=== PATIENT | female | born 1980 | race Caucasian/White ===

== ENCOUNTER 2016-12-24 17:45 | Emergency (ER) | payer OTHER ==
[~2016-12-24] VITALS: Ht 162.6 cm; Wt 81.5 kg
[2016-12-24 17:55] VITALS: TEMP 37.1; Ht 162.6 cm; Wt 81.5 kg
--- NOTE | 2016-12-24 18:56 | DIAGNOSTIC IMAGING REPORT ---
CHEST ONE VIEW PORTABLE CLINICAL HISTORY: Evaluate Fever/Sepsis dyspnea COMPARISON STUDY: No previous studies for comparison. FINDINGS: The bones soft tissues and hemidiaphragms are normal. The cardiomediastinal silhouette is normal. The lungs are clear. The pulmonary vasculature is normal. IMPRESSION: Negative chest. Electronically signed by: Bon St M.D. 12/24/2016 6:55 PM Dictated Date/Time: 12/24/2016 6:54 PM
[2016-12-24 18:58] LABS: URINE APPEARANCE CLEAR (CLEAR); URINE BILIRUBIN NEG (NEG); URINE COLOR YELLOW; URINE EPITHELIAL CELL AUTO >30 /lpf (0-5); URINE NITRITE NEG (NEG); URINE PH 6.5 (4.5-7.5); URINE SPECIFIC GRAVITY 1.025 (1.000-1.030); UROBILINOGEN NEG (NEG)
[2016-12-24 18:59] LABS: MANUAL MICROSCOPIC REQUIRED? NO; REVIEW REQ? NO
[2016-12-24 19:16] LABS: BASO % 0.8 %; BASO ABS # 0.09 K/uL (0-0.2); COMPLETE YES; EOS % 0.4 %; HEMATOCRIT 38.2 % (37-47); IG% 0.2 %; LYMPH % 25.5 %; LYMPH ABS # 2.95 K/uL (1.2-3.4); MEAN CELL VOLUME 83.2 fL (80-100); MEAN CORPUSCULAR HEMOGLOBIN 27.9 pg (25-34); MEAN CORPUSCULAR HGB CONC 33.5 g/dl (32-36); MONO % 5.5 %; NEUT % 67.6 %; PLATELET COUNT 385 K/uL (130-400); RED BLOOD COUNT 4.59 M/uL (4.2-5.4); WHITE BLOOD COUNT 11.57 K/uL (4.8-10.8)
[2016-12-24] MEDS ORDERED: BCPILLS PO (19:28)
[2016-12-24] MEDS ORDERED: ZNTT/150 PO (19:28)
[2016-12-24 19:31] LABS: INR 1.1 (0.9-1.1); PROTHROMBIN TIME (PATIENT) 11.4 SECONDS (9.0-12.0)
[2016-12-24 19:40] LABS: ALT/SGPT 31 U/L (12-78); AST/SGOT 19 U/L (15-37); BLOOD UREA NITROGEN 12 mg/dl (7-18); BUN/CREATININE RATIO 14.9 (10-20); CALCIUM 8.8 mg/dl (8.5-10.1); CARBON DIOXIDE 28 mmol/L (21-32); CHLORIDE 106 mmol/L (98-107); CREATININE 0.81 mg/dl (0.60-1.20); GLUCOSE 97 mg/dl (70-99); SODIUM 140 mmol/L (136-145)
[2016-12-24 19:49] LABS: ALKALINE PHOSPHATASE 72 U/L (45-117); CKMB/CK RATIO 1.1 (0-3.0)
--- NOTE | 2016-12-24 20:17 | EMERGENCY ROOM VISIT NOTE ---
History Report prepared by Shakira: Jameson Duque Under the Supervision of: Dr. Eric Espinoza D.O. First contact with patient: 18:23 Chief Complaint: CHEST PAIN Stated Complaint: IRREGULAR HEARTBEAT,CHEST PAIN,LIGHT HEADED Nursing Triage Summary: Chest pain with strenous activity. History of Present Illness The patient is a 36 year old female who presents to the Emergency Room with complaints of intermittent chest pain beginning four days prior to arrival. She states she was shoveling know on Monday, four days ago, and she went inside and ate a pasta meal. The patient notes she developed chest pain three hours following shoveling the snow and felt lightheaded. She states the following day that she ate a meal and shoveled snow two hours after eating. The patient notes the chest pain returned a few hours following the exertion. She states today she ran 6 miles, and began to feel the chest discomfort an hour following the run. The patient notes she showered and felt more fatigued than usual, so she lied down. She states the chest discomfort was still there following her nap. The patient notes her chest discomfort happens multiple times a day but seems to be onset by exertion. She states she is training for a half marathon so running long distances is not unusual for her. The patient notes she ran 5 miles last week and did not have any issues. She states she has a history of an enlarged heart and a heart murmur. The patient notes she has a family history of heart disease and thyroid issues. She states her father had a heart attack at the age of 42. Source of History: patient Onset: 4 days [employer] Position: chest Timing: intermittent Modifying Factors (Worsening): exertion Associated Symptoms: + chest pain Review of Systems See HPI for pertinent positives & negatives. A total of 10 systems reviewed and were otherwise negative. Past Medical & Surgical Medical Problems: (1) Enlarged heart (2) Heart murmur Family History Heart disease Social History Smoking Status: Never Smoker Marital Status: Occupation Status: unemployed Current/Historical Medications Scheduled Control Pills ( Control Pills), 1 TAB PO DAILY Scheduled PRN Ranitidine (Zantac), 150 MG PO DAILY PRN for PRN Allergies Coded Allergies: Penicillins (Unverified Allergy, Unknown, HIVES, 12/24/16) Physical Exam Vital Signs Date Time Temp Pulse Resp B/P Pulse Ox O2 Delivery O2 Flow Rate FiO2 3/18/17 19:31 85 12/24/16 19:25 84 18 126/81 100 Room Air 12/24/16 17:55 37.1 104 20 128/84 99 Room Air Physical Exam CONSTITUTIONAL/VITAL SIGNS: Reviewed / noted above. GENERAL: Non-toxic in appearance. INTEGUMENTARY: Warm, dry, and [place]. HEAD: Normocephalic. EYES: without scleral icterus or trauma. ENT/OROPHARYNX: clear and moist. LYMPHADENOPATHY/NECK: Is supple without lymphadenopathy or meningismus. RESPIRATORY: Lungs clear and equal. CARDIOVASCULAR: Regular rate and rhythm. GI/ABDOMEN: Soft and nontender. No organomegaly or pulsatile mass. No rebound or guarding. Normal bowel sounds. EXTREMITIES: Warm and well perfused. BACK: No CVA tenderness. NEUROLOGICAL: Intact without focal deficits. PSYCHIATRIC: normal affect. MUSCULOSKELETAL: Normally developed with good muscle tone. Medical Decision & Procedures ER Provider Diagnostic Interpretation: X ray results and stated below per my interpretation and radiology interpretation. CHEST ONE VIEW PORTABLE CLINICAL HISTORY: Evaluate Fever/Sepsis dyspnea COMPARISON STUDY: No previous studies for comparison. FINDINGS: The bones soft tissues and hemidiaphragms are normal. The cardiomediastinal silhouette is normal. The lungs are clear. The pulmonary vasculature is normal. IMPRESSION: Negative chest. Electronically signed by: Bon St M.D. 12/24/2016 6:55 PM Laboratory Results 12/24/16 19:05 Red Blood Count 4.59, Mean Corpuscular Volume 83.2, Mean Corpuscular Hemoglobin 27.9, Mean Corpuscular Hemoglobin Concent 33.5, Mean Platelet Volume 10.0, Neutrophils (%) (Auto) 67.6, Lymphocytes (%) (Auto) 25.5, Monocytes (%) (Auto) 5.5, Eosinophils (%) (Auto) 0.4, Basophils (%) (Auto) 0.8, Neutrophils # (Auto) 7.82, Lymphocytes # (Auto) 2.95, Monocytes # (Auto) 0.64, Eosinophils # (Auto) 0.05, Basophils # (Auto) 0.09 12/24/16 19:05 Test 12/24/16 18:20 12/24/16 19:05 Urine Color YELLOW Urine Appearance CLEAR (CLEAR) Urine pH 6.5 (4.5-7.5) Urine Specific [place] 1.025 (1.000-1.030) Urine Protein NEG (NEG) Urine Glucose (UA) NEG (NEG) Urine Ketones NEG (NEG) Urine Occult Blood TRACE (NEG) Urine Nitrite NEG (NEG) Urine Bilirubin NEG (NEG) Urine Urobilinogen NEG (NEG) Urine Leukocyte Esterase SMALL (NEG) Urine WBC (Auto) 5-10 /hpf (0-5) Urine RBC (Auto) 0-4 /hpf (0-4) Urine Hyaline Casts (Auto) 0 /lpf (0-5) Urine Epithelial Cells (Auto) >30 /lpf (0-5) Urine Bacteria (Auto) NEG (NEG) White Blood Count 11.57 K/uL (4.8-10.8) Red Blood Count 4.59 M/uL (4.2-5.4) Hemoglobin 12.8 g/dL (12.0-16.0) Hematocrit 38.2 % (37-47) Mean Corpuscular Volume 83.2 fL (80-100) Mean Corpuscular Hemoglobin 27.9 pg (25-34) Mean Corpuscular Hemoglobin Concent 33.5 g/dl (32-36) Platelet Count 385 K/uL (130-400) Mean Platelet Volume 10.0 fL (7.4-10.4) Neutrophils (%) (Auto) 67.6 % Lymphocytes (%) (Auto) 25.5 % Monocytes (%) (Auto) 5.5 % Eosinophils (%) (Auto) 0.4 % Basophils (%) (Auto) 0.8 % Neutrophils # (Auto) 7.82 K/uL (1.4-6.5) Lymphocytes # (Auto) 2.95 K/uL (1.2-3.4) Monocytes # (Auto) 0.64 K/uL (0.11-0.59) Eosinophils # (Auto) 0.05 K/uL (0-0.5) Basophils # (Auto) 0.09 K/uL (0-0.2) RDW Standard Deviation 40.2 fL (36.4-46.3) RDW Coefficient of Variation 13.3 % (11.5-14.5) Immature Granulocyte % (Auto) 0.2 % Immature Granulocyte # (Auto) 0.02 K/uL (0.00-0.02) Prothrombin Time 11.4 SECONDS (9.0-12.0) Prothromb Time International Ratio 1.1 (0.9-1.1) Activated Partial Thromboplast Time 25.6 SECONDS (21.0-31.0) Partial Thromboplastin Ratio 1.0 Anion Gap 6.0 mmol/L (3-11) Est Creatinine Clear Calc Drug Dose 99.2 ml/min Estimated GFR () 108.3 Estimated GFR (Non- 93.4 BUN/Creatinine Ratio 14.9 (10-20) Calcium Level 8.8 mg/dl (8.5-10.1) Total Bilirubin 0.2 mg/dl (0.2-1) Direct Bilirubin < 0.1 mg/dl (0-0.2) Aspartate Amino Transf (AST/SGOT) 19 U/L (15-37) Alanine Aminotransferase (ALT/SGPT) 31 U/L (12-78) Alkaline Phosphatase 72 U/L (45-117) Total Creatine Kinase 259 U/L (26-192) Creatine Kinase MB 2.8 ng/ml (0.5-3.6) Creatine Kinase MB Ratio 1.1 (0-3.0) Troponin I < 0.015 ng/ml (0-0.045) Total Protein 7.8 gm/dl (6.4-8.2) Albumin 3.7 gm/dl (3.4-5.0) Lipase 145 U/L (73-393) Thyroid Stimulating Hormone (TSH) 3.240 uIu/ml (0.300-4.500) Free Thyroxine 1.02 ng/dl (0.80-1.60) Free Triiodothyronine 2.55 pg/ml (2.30-4.20) Laboratory results as stated above per my review. ECG Indication: chest pain Rate (beats per minute): 90 Rhythm: normal sinus Findings: no ectopy, other (no acute injury) ED Course 182: Previous medical records were reviewed. The patient was evaluated in room A11B. A complete history and physical examination was performed. 2017: On reevaluation, the patient is doing well. I discussed the results and findings with the patient. She verbalized agreement of the treatment plan. The patient was discharged home. Medical Decision the differential was considered includes acute myocardial infarction, acute coronary syndrome, myocarditis, pericarditis, pericardial effusions /tamponade, esophageal perforation, thoracic aortic dissection, pulmonary embolism, pneumonia, pneumothorax, pancreatitis, shingles, acute cholecystitis, perforated abdominal viscus. This is a 36-year-old female who presents to the ED with a chief complaint of chest palpitations. The patient states that her symptoms occur 1-2 hours after activity. It does not occur during activity. It occurred several times in the past week. She states that it occurred twice an hour or 2 after shoveling snow and then once after jogging. She states that she was running today about 6 miles an about an hour later she developed heavy heart pounding. She states that the symptoms would come and go. Vital signs are stable. Her physical exam is currently normal. EKG shows a normal sinus rhythm. CBC and complete metabolic panel was unremarkable. TSH is normal as is the free T3 and free T4. Troponin was negative. Urine did not show infection chest x-ray is negative for acute disease. The patient was told the results. She is felt to be stable for discharge. A Holter monitor might be beneficial in the future. Impression Primary Impression: Palpitations Scribe Attestation The scribe's documentation has been prepared under my direction and personally reviewed by me in its entirety. I confirm that the note above accurately reflects all work, treatment, procedures, and medical decision making performed by me. Departure Information Dispostion Home / Self-Care Referrals Darryn Alonzo M.D. (PCP) Forms HOME CARE DOCUMENTATION FORM, IMPORTANT VISIT INFORMATION Patient Instructions My [facility] Additional Instructions Your test results today were normal. Thyroid function is normal. EKG was normal. A Holter monitor or an event monitor may be beneficial for further evaluation of your symptoms. Talk to your family doctor about this. Return for any concerns or worsening.
[2016-12-24 20:55] VITALS: BP 101/81; PULSE 81; O2SAT 97
== END 2016-12-24 20:57 | disposition home or self-care (01) ==
LOC: MERGE 17:48 → C.EDB 17:48 → C.EDA 20:57
DX: R00.2 Palpitations (principal); R01.1 Cardiac murmur, unspecified; Z82.49 Family history of ischemic heart disease and other diseases of the circulatory system